=== PATIENT | female | born 1950 ===

== ENCOUNTER 2017-02-07 16:21 | Emergency (ER) | payer OTHER ==
--- NOTE | 2017-02-07 19:25 | C.PDOC ---
History Of Present Illness 66 year old female, whose PMHx includes Diabetes, presents to the ED for evaluation of diffuse abdominal pain which began around 2 weeks ago. Patient also notes headache, nausea, back pain, subjective fever, left-sided chest pain , and constipation. Patient also reports inability to sleep for around 2 weeks, and requests sleeping pills. Patient states she was recently evaluated by a doctor for kidney problems and has an upcoming appointment. She denies vomiting and dysuria. Time Seen by Provider: 02/07/17 18:45 Chief Complaint (Nursing): Abdominal Pain History Per: Patient History/Exam Limitations: no limitations Current Symptoms Are (Timing): Still Present Location Of Pain/Discomfort: Diffuse Radiation Of Pain To:: None Quality Of Discomfort: "Pain" Additional History Per: Patient Abnormal Vaginal Bleeding: No Past Medical History Reviewed: Historical Data, Nursing Documentation, Vital Signs Vital Signs: Last Vital Signs Temp 97.8 F 02/07/17 20:15 Pulse 82 02/07/17 20:15 Resp 20 02/07/17 20:15 BP 151/77 H 02/07/17 20:15 Pulse Ox 99 02/07/17 20:15 - Medical History PMH: Diabetes Surgical History: No Surg Hx Family History: States: Unknown Family Hx - Social History Hx Tobacco Use: No Hx Alcohol Use: No Hx Substance Use: No - Immunization History Hx Tetanus Toxoid Vaccination: No Hx Influenza Vaccination: No Hx Pneumococcal Vaccination: No Review Of Systems Cardiovascular: Negative for: Chest Pain Gastrointestinal: Positive for: Abdominal Pain (diffuse ), Constipation. Negative for: Vomiting Musculoskeletal: Positive for: Back Pain Physical Exam - Physical Exam Appears: Non-toxic, No Acute Distress Skin: Normal Color, Warm, Dry Head: Atraumatic, Normacephalic Eye(s): bilateral: Normal Inspection Oral Mucosa: Moist Neck: Supple Chest: Symmetrical, No Deformity, No Tenderness Cardiovascular: Rhythm Regular, No Murmur Respiratory: Normal Breath Sounds, No Rales, No Rhonchi, No Wheezing Gastrointestinal/Abdominal: Soft, Tenderness (diffuse, nonspecific ), No Guarding, No Rebound Back: Normal Inspection, No Vertebral Tenderness, No Paraspinal Tenderness Extremity: Normal ROM, Capillary Refill (less than 2 seconds ) Neurological/Psych: Oriented x3, Normal Speech, Normal Cognition Gait: Steady ED Course And Treatment - Laboratory Results Result Diagrams: 02/07/17 19:49 02/07/17 19:49 O2 Sat by Pulse Oximetry: 96 (on RA) Pulse Ox Interpretation: Normal Medical Decision Making Medical Decision Making: Impression: 66 year old female with abdominal pain Plan: * Bloodwork * EKG * UA * Motrin PO * Tylenol PO * reassess and disposition Progress: Bloodwork, EKG, UA, and Abdomen XR ordered and reviewed. Motrin PO and Tylenol PO administered. Disposition - Disposition Referrals: [facility] [Outside] Disposition: HOME/ ROUTINE Disposition Time: 20:54 Condition: STABLE Additional Instructions: Siga con medellin doctor, o en la clinica. Prescriptions: Ibuprofen [Motrin] 1 tab PO TID PRN #30 tab PRN Reason: Pain Psyllium Husk/Aspartame [Metamucil Fiber Singles Packet] 3.4 gm PO DAILY #20 powd.pack Instructions: Constipation (ED) Forms: Gen Discharge Inst Iraqi, [facility] (Iraqi) - POA Present On Arrival: None - Clinical Impression Clinical Impression: Generalized pain - Scribe Statement The provider has reviewed the documentation as recorded by the Scribe (Brenda Early) Provider Attestation: All medical record entries made by the Scribe were at my direction and personally dictated by me. I have reviewed the chart and agree that the record accurately reflects my personal performance of the history, physical exam, medical decision making, and the department course for this patient. I have also personally directed, reviewed, and agree with the discharge instructions and disposition.
[2017-02-07 19:56] LABS: BASO # 0.1 K/uL (0.0-0.2); BASO % 0.8 % (0.0-2.0); EOS # 0.2 K/uL (0.0-0.7); HEMATOCRIT 35.3 % (34.0-47.0); LYMPH # 2.6 K/uL (1.0-4.3); LYMPH % 30.1 % (20.0-40.0); MEAN CELL VOLUME 87.7 fL (81.0-99.0); MEAN CORPUSCULAR HEMOGLOBIN 28.6 pg (27.0-31.0); MEAN CORPUSCULAR HGB CONC 32.6 g/dL (33.0-37.0); MONO # 0.5 K/uL (0.0-0.8); RED CELL DISTRIBUTION WIDTH 13.3 % (11.5-14.5); WHITE BLOOD COUNT 8.6 K/uL (4.8-10.8)
[2017-02-07 20:01] LABS: RBC URINE 13 /hpf (0-3); URINE BACTERIA RARE (<OCC); URINE BILIRUBIN NEGATIVE (NEGATIVE); URINE BLOOD 1+ (NEGATIVE); URINE COLOR Yellow (YELLOW); URINE GLUCOSE (UA) NORMAL (Normal); URINE KETONE NEGATIVE (NEGATIVE); URINE LEUKOCYTE ESTERASE 3+ Leu/uL (Negative); URINE PROTEIN NEGATIVE (NEGATIVE); URINE UROBILINOGEN NORMAL mg/dL (0.2-1.0); WBC URINE 45 /hpf (0-5)
[2017-02-07 20:02] LABS: CHLORIDE 102 mmol/L (98-107)
[2017-02-07 20:03] LABS: POTASSIUM 4.5 mmol/L (3.6-5.2); SODIUM 134 mmol/L (132-148)
[2017-02-07 20:05] LABS: AST/SGOT 18 U/L (14-36); BILIRUBIN,TOTAL 0.3 mg/dL (0.2-1.3); CARBON DIOXIDE 21 mmol/L (22-30); GFR AFRICAN-AMERICAN 50
[2017-02-07 20:06] LABS: ALKALINE PHOSPHATASE 91 U/L (38-126); ALT/SGPT 42 U/L (9-52); BLOOD UREA NITROGEN 27 mg/dL (7-17); CALCIUM 9.2 mg/dl (8.6-10.4); GLUCOSE,RANDOM 188 mg/dL (65-105)
[2017-02-07 21:16] VITALS: BP 132/87; PULSE 84; RESP 18; TEMP 98.7; O2SAT 97
--- NOTE | 2017-02-08 08:48 | RAD ---
HISTORY: abd pain COMPARISON: No prior. FINDINGS: BOWEL: Normal. No obstruction. No free air. BONES: Normal. OTHER FINDINGS: None. IMPRESSION: No active disease.
== END 2017-02-07 21:16 | disposition home or self-care (01) ==
LOC: C.ER 16:21
DX: R52 Pain, unspecified (principal)